=== PATIENT | female | born 1990 | race Caucasian/White ===

== ENCOUNTER 2018-06-06 17:46 | Emergency (ER) | payer MEDICAID ==
[~2018-06-06] VITALS: Ht 162.6 cm; Wt 71.2 kg
[2018-06-06 17:53] VITALS: Ht 162.6 cm; Wt 71.2 kg
[2018-06-06 18:57] LABS: BASOPHIL % 0.3 % (0-2); PLATELET COUNT 267 x10^3mcL (130-400); RED CELL DISTRIBUTION WIDTH 13.8 % (11.5-14.5)
[2018-06-06 19:06] LABS: CALCIUM 8.2 mg/dL (8.5-10.1); CHLORIDE SERUM 105 mmol/L (98-107); CREATININE SERUM 0.7 mg/dL (0.6-1.0); GFR1 > 60 mL/min; GLUCOSE SERUM 104 mg/dL (74-106); SODIUM SERUM 137 mmol/L (136-145)
[2018-06-06 19:10] LABS: ALKALINE PHOSPHATASE 133 U/L (46-116); ALT/SGPT 68 U/L (14-59); AST/SGOT 31 U/L (15-37); BILIRUBIN TOTAL 0.8 mg/dL (0.20-1.00); LIPASE 221 IU/L (73-393); TOTAL PROTEIN, SERUM 7.7 g/dL (6.4-8.2)
[2018-06-06 19:11] LABS: ALBUMIN 3.3 g/dL (3.4-5.0)
[2018-06-06 19:41] VITALS: BP 126/73
== END 2018-06-06 19:41 | disposition home or self-care (01) ==
LOC: ED 17:46
PROVIDERS: Emergency Medicine
DX: R07.2 Precordial pain (principal); R42 Dizziness and giddiness; Z88.6 Allergy status to analgesic agent
CPT/HCPCS: 36415; J1885; Q0092

== ENCOUNTER 2018-11-11 12:03 | Emergency (ER) | payer MEDICAID ==
[~2018-11-11] VITALS: Ht 147.3 cm; Wt 71.4 kg
[2018-11-11 12:10] VITALS: Ht 147.3 cm; Wt 71.4 kg
[2018-11-11 14:25] VITALS: BP 104/72
== END 2018-11-11 14:25 | disposition home or self-care (01) ==
LOC: ED 12:03
DX: J68.0 Bronchitis and pneumonitis due to chemicals, gases, fumes and vapors (principal); Z88.8 Allergy status to other drugs, medicaments and biological substances
CPT/HCPCS: Q0092

== ENCOUNTER 2019-07-20 16:55 | Emergency (ER) | payer MEDICAID ==
[~2019-07-20] VITALS: Ht 154.9 cm; Wt 69.4 kg
[2019-07-20 17:17] VITALS: Ht 154.9 cm; Wt 69.4 kg
[2019-07-20 17:49] LABS: microscopic required? YES; urine erythrocyte NEGATIVE (NEGATIVE)
[2019-07-20 18:13] LABS: CALCIUM 8.9 mg/dL (8.5-10.1); CHLORIDE SERUM 105 mmol/L (98-107); CREATININE SERUM 0.7 mg/dL (0.6-1.0); GFR1 > 60 mL/min; GLUCOSE SERUM 77 mg/dL (74-106); POTASSIUM SERUM 3.8 mmol/L (3.5-5.1); SODIUM SERUM 141 mmol/L (136-145)
[2019-07-20 18:18] LABS: ALBUMIN 3.8 g/dL (3.4-5.0); ALKALINE PHOSPHATASE 145 U/L (46-116); ALT/SGPT 361 U/L (14-59); AMYLASE 87 U/L (25-115); AST/SGOT 207 U/L (15-37); BILIRUBIN TOTAL 0.8 mg/dL (0.20-1.00); LIPASE 149 IU/L (73-393); TOTAL PROTEIN, SERUM 8.6 g/dL (6.4-8.2)
[2019-07-20 18:23] LABS: BASOPHIL % 0.4 % (0-2); PLATELET COUNT 306 x10^3mcL (130-400)
[2019-07-20 23:21] VITALS: BP 102/71
== END 2019-07-20 23:21 | disposition home or self-care (01) ==
LOC: ED 16:55
PROVIDERS: Emergency Medicine
DX: N83.201 Unspecified ovarian cyst, right side (principal); N76.0 Acute vaginitis; Z88.6 Allergy status to analgesic agent
CPT/HCPCS: J2270; J2405; J7030; Q9967